=== PATIENT | female | born 1975 | race African-American/Black ===

== ENCOUNTER 2017-12-02 18:44 | Inpatient (IN) | payer OTHER ==
[2017-12-02] MEDS ORDERED: morphine CARPU-JECT 2 MG/1 ML DISP.SYRIN IVPUSH ONE (19:50)
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
[2017-12-02] MEDS ORDERED: morphine CARPU-JECT 2 MG/1 ML DISP.SYRIN IM ONE (20:41)
[2017-12-02] MEDS ORDERED: morphine SULFATE 4 MG/ML VIAL ONE (20:42)
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
[2017-12-02 22:48] LABS: HEMATOCRIT 35.9 % (32.4-45.2); HEMOGLOBIN 12.1 GM/dL (10.7-15.3); MCH 28.4 pg (25.7-33.7); MCHC 33.6 g/dl (32.0-36.0); MEAN CELL VOLUME 84.7 fl (80-96); MEAN PLT VOLUME 8.3 fl (7.5-11.1); PLATELET COUNT 428 K/MM3 (134-434); RBC 4.24 M/mm3 (3.60-5.2); RDW 13.4 % (11.6-15.6); WHITE BLOOD COUNT 6.7 K/mm3 (4.0-10.0)
[2017-12-02 23:16] LABS: ALBUMIN 2.6 g/dl (3.4-5.0); ALK PHOS 818 U/L (45-117); ANION GAP 9 MMOL/L (8-16); BLOOD UREA NITROGEN 39 mg/dL (7-18); CALCIUM 8.9 mg/dL (8.5-10.1); CHLORIDE 99 mmol/L (98-107); CO2 29 mmol/L (21-32); GLUCOSE,RANDOM 216 mg/dL (74-106); SGPT/ALT 47 U/L (12-78); SODIUM 137 mmol/L (136-145); TOT PROT 6.6 g/dl (6.4-8.2)
[2017-12-02 23:19] LABS: BILIRUBIN,TOTAL < 0.1 mg/dL (0.2-1.0)
[2017-12-02 23:20] LABS: POTASSIUM 4.9 mmol/L (3.5-5.1); SGOT/AST 38 U/L (15-37)
[2017-12-03] MEDS ORDERED: SODIUM CHLORIDE 0.9% 500 ML INFUS.BAG IV ONE (02:19)
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
[2017-12-03] MEDS ORDERED: ASPIRIN 81 MG CHEWABLE TABLETS PO ONE (04:06)
[2017-12-03] MEDS ORDERED: HEPARIN NA (PORCINE) 5,000 UNITS/ML 1ML VIAL IVPUSH PRN ×2 (04:09)
[2017-12-03] MEDS ORDERED: ASPIRIN 81 MG CHEWABLE TABLETS ONE (04:41)
[2017-12-03] MEDS ORDERED: HEPARIN INFUSION - 25,000 UNITS/500 ML INFUS.BAG IVPB ONE (04:42)
[2017-12-03] MEDS: HEPARIN - 25,000 UNIT in SODIUM CHLORIDE 495 ML IV SCH (04:50)
[2017-12-03] MEDS ORDERED: MORPHINE SULFATE 2 MG/ML VIAL ONE ×3 (05:07→19:49)
[2017-12-03] MEDS: MORPHINE SULFATE 2 MG/ML VIAL IVPUSH PRN ×3 (05:13→19:35)
[2017-12-03] MEDS ORDERED: HEPARIN NA (PORCINE) 5,000 UNITS/ML 1ML VIAL ONE ×2 (05:14→12:40)
[2017-12-03 06:37] LABS: EOS % 2.3 % (0-4.5); HEMATOCRIT 33.6 % (32.4-45.2); HEMOGLOBIN 11.2 GM/dL (10.7-15.3); LYMPH % 31.7 % (8-40); MCH 28.2 pg (25.7-33.7); MCHC 33.3 g/dl (32.0-36.0); MEAN CELL VOLUME 84.6 fl (80-96); MEAN PLT VOLUME 7.4 fl (7.5-11.1); PLATELET COUNT 386 K/MM3 (134-434); RBC 3.97 M/mm3 (3.60-5.2); RDW 13.7 % (11.6-15.6); WHITE BLOOD COUNT 6.3 K/mm3 (4.0-10.0)
[2017-12-03 06:59] LABS: ANION GAP 9 MMOL/L (8-16); BLOOD UREA NITROGEN 36 mg/dL (7-18); CALCIUM 8.6 mg/dL (8.5-10.1); CHLORIDE 103 mmol/L (98-107); CHOLESTEROL 219 mg/dL (50-200); CO2 27 mmol/L (21-32); CREATININE 0.9 mg/dL (0.55-1.02); GLUCOSE,RANDOM 189 mg/dL (74-106); HDL CHOLESTEROL 41 mg/dL (40-60); MAGNESIUM 1.6 mg/dL (1.8-2.4); PHOSPHOROUS 3.9 mg/dL (2.5-4.9); POTASSIUM 4.1 mmol/L (3.5-5.1); SODIUM 139 mmol/L (136-145); TRIGLYCERIDES 139 mg/dL (35-160)
[2017-12-03 08:41] LABS: URINE APPEARANCE CLOUDY; URINE BILIRUBIN NEGATIVE (<2.0 mg/dL); URINE COLOR YELLOW; URINE GLUCOSE (UA) NEGATIVE (NEGATIVE); URINE KETONE NEGATIVE (NEGATIVE); URINE NITRITE NEGATIVE (NEGATIVE); URINE UROBILINOGEN NEGATIVE mg/dL (0.2-1.0)
[2017-12-03 08:44] LABS: URINE LEUK ESTERASE 3+ (NEGATIVE); URINE PROTEIN 2+ (NEGATIVE)
[2017-12-03 08:53] LABS: EPI CELLS RARE /HPF (FEW); URINE BACTERIA RARE /hpf (NONE SEEN); URINE HYALINE CAST 2 /lpf; URINE MUCUS RARE
[2017-12-03 12:25] LABS: INR 1.1 (0.83-1.09); PROTHROMBIN TIME (PATIENT) 12.4 SEC (9.7-13.0)
[2017-12-03 12:27] LABS: ACTIVATED PTT 41.2 SECONDS (25.2-36.5)
[2017-12-03] MEDS ORDERED: MAGNESIUM SULF 50% (8.12 MEQ/2 ML-1 GM VIAL) IVPB ONE ×2 (12:34→13:00)
[2017-12-03] MEDS ORDERED: ATORVASTATIN CA 80 MG TABLET (FP) PO ONE (13:25)
[2017-12-03] MEDS ORDERED: CLOPIDOGREL BISULFATE 75 MG TABLET (FP) PO ONE ×2 (13:25→22:30)
[2017-12-03] MEDS ORDERED: ASPIRIN 325 MG TABLET PO ONE (13:25)
[2017-12-03] MEDS ORDERED: ASPIRIN 325 MG TABLET ONE (13:26)
[2017-12-03] MEDS ORDERED: CLOPIDOGREL BISULFATE 75 MG TABLET (FP) ONE (13:27)
[2017-12-03] MEDS ORDERED: ATORVASTATIN CA 80 MG TABLET (FP) ONE (13:27)
[2017-12-03] MEDS ORDERED: MAGNESIUM 1GM/D5W - 1 GM/100 ML IVPB IVPB ONE (14:06)
--- NOTE | 2017-12-03 14:30 | PN ---
Progress Note (short form) - Note Progress Note: patient seen and examined in the emergency room Chart reviewed Positive troponins EKG--- unremarkable Patient comfortable Denies chest pain except--- tenderness on the left side of the rib cage--- due to previous fall--patient reported same On heparin received aspirin and Plavix Denies shortness of breath Vital Signs Temp 98.4 F 12/03/17 08:31 Pulse 96 H 12/03/17 12:53 Resp 16 12/03/17 12:53 BP 101/73 12/03/17 12:53 Pulse Ox 98 12/03/17 12:53 Intake & Output 12/02/17 12/03/17 12/03/17 23:59 11:59 23:59 Weight 147 lb Other: Height 5 ft 3 in Body Mass Index (BMI) 26.0 Weight Measurement Method Est/Stated by Patient Active Medications Aspirin (Asa -) 81 mg PO DAILY [facility] Heparin Sodium (Porcine) (Heparin -) 1,000 unit IVPUSH PRN PRN PRN Reason: Heparin Last Admin: 12/03/17 12:51 Dose: 1,000 unit Heparin Sodium (Porcine) (Heparin -) 5,000 unit IVPUSH PRN PRN PRN Reason: Heparin Last Admin: 12/03/17 05:12 Dose: 5,000 unit Heparin Sodium (Porcine) 25, (000 unit/ Sodium Chloride) 500 mls @ 16 mls/hr IV TITR TULIO; Protocol Last Titration: 12/03/17 12:51 Dose: 900 unit/hr, 18 mls/hr Losartan Potassium (Cozaar -) 50 mg PO DAILY [facility] Metoprolol Succinate (Toprol Xl -) 25 mg PO DAILY [facility] Morphine Sulfate (Morphine Sulfate) 2 mg IVPUSH Q6H PRN PRN Reason: PAIN LEVEL 7 - 10 Last Admin: 12/03/17 13:06 Dose: 2 mg CBC, BMP 12/03/17 06:26 12/03/17 06:26 Abnormal Lab Results 12/02/17 12/02/17 12/03/17 22:40 22:40 03:18 MPV INR PTT (Actin FS) BUN 39 H Random Glucose 216 H Magnesium Total Bilirubin < 0.1 L AST 38 H Alkaline Phosphatase 818 H Creatine Kinase Creatine Kinase Index CK-MB (CK-2) Troponin I 0.87 H* 1.01 H* Albumin 2.6 L Cholesterol Total LDL Cholesterol Urine Protein Urine Blood Ur Leukocyte Esterase 12/03/17 12/03/17 12/03/17 06:26 06:26 08:20 MPV 7.4 L D INR PTT (Actin FS) BUN 36 H Random Glucose 189 H Magnesium 1.6 L Total Bilirubin AST Alkaline Phosphatase Creatine Kinase Creatine Kinase Index 10.7 H* CK-MB (CK-2) 17.16 H Troponin I 2.67 H* Albumin Cholesterol 219 H Total LDL Cholesterol 160 H Urine Protein 2+ H Urine Blood 1+ H Ur Leukocyte Esterase 3+ H D 12/03/17 12/03/17 11:40 11:40 MPV INR 1.10 H PTT (Actin FS) 41.2 H BUN Random Glucose Magnesium Total Bilirubin AST Alkaline Phosphatase Creatine Kinase 197 H Creatine Kinase Index 10.9 H* CK-MB (CK-2) 21.65 H Troponin I 3.33 H* Albumin Cholesterol Total LDL Cholesterol Urine Protein Urine Blood Ur Leukocyte Esterase physical exam Awake and comfortable neck supple No JVD Lungs--clear Heart sounds--- regular--- no murmur appreciated abdomen--Soft Extremities--left upper extremity in brace chest--Tenderness present--- left side of rib cage Neuro--alert and awake Assessment and plan Positive troponins==--NST PR EKG--no acute changes on heparin./And aspirin Will add beta leigh and YAN inhibitor Transfer for cardiac catheter? Discussed with healthcare insurance sales agent--- will be coming to see patient shortly We will follow Discussed with nursing staff also
[2017-12-03] MEDS ORDERED: LOSARTAN POTASSIUM 25 MG TABLET ONE (15:06)
[2017-12-03] MEDS: LOSARTAN POTASSIUM 50 MG TABLET (FP) PO SCH (15:15)
[2017-12-03] MEDS: metoPROLOL SUCCINATE 25 MG TAB.SR.24H (FP) PO SCH (15:15)
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
[2017-12-03] MEDS ORDERED: LISINOPRIL 5 MG TABLET (FP) PO ONE (18:45)
--- NOTE | 2017-12-03 19:12 | ECHO ---
Name: JIAN KIM Exam:Adult Echocardiogram Study Date: 12/03/2017 03:33 PM Age: 42 yrs Reason For Study: CHEST PAIN Height: 63 in Weight: 147 lb BSA: 1.7 m2 MMode/2D Measurements & Calculations IVSd: 0.98 cm Ao root diam: 2.6 cm LVIDd: 4.8 cm LA dimension: 2.7 cm LVIDs: 3.2 cm LVPWd: 0.84 cm EDV(Teich): 108.1 ml ESV(Teich): 42.0 ml Doppler Measurements & Calculations MV E max bay: 40.9 cm/sec Ao V2 max: 83.9 cm/sec MV A max bay: 63.2 cm/sec Ao max P.8 mmHg MV E/A: 0.65 LV V1 max P.3 mmHg Med Peak E' Bay: 7.3 cm/sec LV V1 max: 56.5 cm/sec Med E/e': 5.6 Lat Peak E' Bay: 5.5 cm/sec Lat E/e': 7.5 Left Ventricle The left ventricle is normal in size. Left ventricular systolic function is mild to moderately reduce d. Ejection Fraction = 35-40%. The transmitral spectral Doppler flow pattern is suggestive of impaired L V relaxation. There is inferior wall akinesis. There is posterior wall akinesis. Atria Normal left and right atrial size and function. Mitral Valve There is mild mitral valve thickening. There is trace to mild mitral regurgitation. Tricuspid Valve There is Trace to mild tricuspid regurgitation. Great Vessels The aortic root is normal size. Pericardium/Pleura Trivial pericardial effusion not hemodynamically significant. Interpretation Summary The left ventricle is normal in size. Left ventricular systolic function is mild to moderately reduced. Ejection Fraction = 35-40%. The transmitral spectral Doppler flow pattern is suggestive of impaired LV relaxation. There is posterior wall akinesis. There is inferior wall akinesis. There is mild mitral valve thickening. There is trace to mild mitral regurgitation. There is Trace to mild tricuspid regurgitation. The aortic root is normal size. Elian Hernandez MD 12/03/2017 06:51 PM
[2017-12-03] MEDS ORDERED: LISINOPRIL 5 MG TABLET (FP) ONE (19:49)
[2017-12-03] MEDS ORDERED: ATORVASTATIN CA 40 MG TABLET (FP) PO SCH (22:00)
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
[2017-12-03] MEDS ORDERED: MORPHINE SULFATE 2 MG/ML VIAL IVPUSH ONE (23:30)
[2017-12-04 06:19] LABS: EOS % 2.4 % (0-4.5); HEMATOCRIT 35.7 % (32.4-45.2); HEMOGLOBIN 11.7 GM/dL (10.7-15.3); LYMPH % 33.9 % (8-40); MCH 27.9 pg (25.7-33.7); MCHC 32.9 g/dl (32.0-36.0); MEAN CELL VOLUME 84.9 fl (80-96); MEAN PLT VOLUME 6.9 fl (7.5-11.1); MONO % 8.9 % (3.8-10.2); NEUT % 53.8 % (42.8-82.8); PLATELET COUNT 374 K/MM3 (134-434); RDW 13.6 % (11.6-15.6); WHITE BLOOD COUNT 5.5 K/mm3 (4.0-10.0)
[2017-12-04] MEDS: INSULIN SLIDING SCALE (NOVOLOG) 1 VIAL SQ SCH ×4 (06:30→22:00)
[2017-12-04 06:44] LABS: CHLORIDE 99 mmol/L (98-107); POTASSIUM 4.3 mmol/L (3.5-5.1); SODIUM 135 mmol/L (136-145)
[2017-12-04] MEDS: HEPARIN - 25,000 UNIT in SODIUM CHLORIDE 495 ML IV SCH ×2 (06:47→07:58)
[2017-12-04 06:53] LABS: ALBUMIN 2.4 g/dl (3.4-5.0); ALK PHOS 711 U/L (45-117); ANION GAP 7 MMOL/L (8-16); BILIRUBIN,TOTAL 0.2 mg/dL (0.2-1.0); BLOOD UREA NITROGEN 40 mg/dL (7-18); CALCIUM 8.7 mg/dL (8.5-10.1); CO2 29 mmol/L (21-32); CREATININE 1.1 mg/dL (0.55-1.02); GLUCOSE,RANDOM 275 mg/dL (74-106); SGOT/AST 56 U/L (15-37); SGPT/ALT 41 U/L (12-78); TOT PROT 6.3 g/dl (6.4-8.2)
[2017-12-04 09:24] LABS: MAGNESIUM 1.8 mg/dL (1.8-2.4); PHOSPHOROUS 3.7 mg/dL (2.5-4.9)
[2017-12-04] MEDS ORDERED: cefTRIAXone SODIUM 1 GM VIAL ONE (09:46)
[2017-12-04] MEDS ORDERED: DEXTROSE 5%-WATER - 50 ML IVPB ONE (09:47)
[2017-12-04] MEDS: metoPROLOL SUCCINATE 25 MG TAB.SR.24H (FP) PO SCH (09:59)
[2017-12-04] MEDS: ASPIRIN 81 MG CHEWABLE TABLETS PO SCH (10:00)
[2017-12-04] MEDS: LOSARTAN POTASSIUM 50 MG TABLET (FP) PO SCH (10:00)
[2017-12-04] MEDS: INSULIN (LEVEMIR) 100 UNITS/ML UNITS SQ SCH (10:01)
[2017-12-04] MEDS: CEFTRIAXONE 1 GM in DEXTROSE 5%-WATER - 50 ML IVPB SCH (10:17)
--- NOTE | 2017-12-04 10:26 | PN ---
Progress Note (short form) - Note Progress Note: patient seen and examined in ICU Positive troponins NST NE Patient at present is awake and comfortable Denies chest pain Cardiology consult noted and appreciated--- transfer being considered. also started on antibiotics--- for UTI Urine culture not sent----discussed with nursing staff and ICU team--- to be sent She is also not on basal insulin--- blood sugar running high Add basal insulin I also Ordered [id number]----ok be added to the labs Vital Signs Temp 98.6 F 12/04/17 00:00 Pulse 71 12/04/17 04:00 Resp 14 12/04/17 04:00 BP 110/81 12/04/17 04:00 Pulse Ox 98 12/04/17 09:00 Intake & Output 12/03/17 12/03/17 12/04/17 11:59 23:59 11:59 Intake Total 300 203 Output Total 1000 Balance -700 203 Weight 147 lb 145 lb 12.8 oz Intake: IV 153 Heparin - 25,000 Unit In 153 Normal Saline - 495 ml @ 800 UNIT/HR 16 mls/hr IV TITR TULIO Rx#:[id number] Oral 150 50 Oral Supplement 150 Output: Urine 1000 Void 1000 Other: Voiding Method Bedpan Height 5 ft 3 in Body Mass Index (BMI) 26.0 Weight Measurement Method [facility] Medications Aspirin (Asa -) 81 mg PO DAILY [facility] Last Admin: 12/04/17 10:00 Dose: 81 mg Atorvastatin Calcium (Lipitor -) [address] [facility] Heparin Sodium (Porcine) (Heparin -) 1,000 unit IVPUSH PRN PRN PRN Reason: Heparin Last Admin: 12/03/17 12:51 Dose: 1,000 unit Heparin Sodium (Porcine) (Heparin -) 5,000 unit IVPUSH PRN PRN PRN Reason: Heparin Last Admin: 12/03/17 05:12 Dose: 5,000 unit Heparin Sodium (Porcine) 25, (000 unit/ Sodium Chloride) 500 mls @ 16 mls/hr IV TITR TULIO; Protocol Last Admin: 12/04/17 07:58 Dose: 900 unit/hr, 18 mls/hr Ceftriaxone Sodium 1 gm/ (Dextrose) 50 mls @ 100 mls/hr IVPB DAILY TULIO Last Admin: 12/04/17 10:17 Dose: 100 mls/hr Insulin Aspart (Novolog Vial Sliding Scale -) 1 vial SQ [facility]; Protocol Last Admin: 12/04/17 06:30 Dose: 6 units Insulin Detemir (Levemir Vial) 10 units SQ DAILY@0700 [facility] Last Admin: 12/04/17 10:01 Dose: 10 units Losartan Potassium (Cozaar -) 50 mg PO DAILY [facility] Last Admin: 12/04/17 10:00 Dose: 50 mg Metoprolol Succinate (Toprol Xl -) 25 mg PO DAILY [facility] Last Admin: 12/04/17 09:59 Dose: 25 mg Morphine Sulfate (Morphine Sulfate) 2 mg IVPUSH Q6H PRN PRN Reason: PAIN LEVEL 7 - 10 Last Admin: 12/03/17 19:35 Dose: 2 mg CBC, BMP 12/04/17 05:30 12/04/17 05:30 physical exam Awake and comfortable neck supple No JVD Lungs--clear Heart sounds--- regular--- no murmur appreciated abdomen--Soft/ non tender Extremities--left upper extremity in brace chest--Tenderness present--- left side of rib cage Neuro--alert and awake Assessment and plan NST NE--inferior wall NE Positive troponins==- EKG--no acute changes on heparin./And aspirin antibiotics for UTI Medications reviewed in cardiology on caser up blood sugar Transfer to tertiary care center discussed with ICU resident/Attending Had discussed with breaker unit assembler also smoking cessation counseling also provided. Will follow. Critical care time--- 30 minutes Problem List - Problems (1) Nicotine dependence Code(s): F17.200 - NICOTINE DEPENDENCE, UNSPECIFIED, UNCOMPLICATED (2) Diabetes Code(s): E11.9 - TYPE 2 DIABETES MELLITUS WITHOUT COMPLICATIONS (3) NSTEMI (non-ST elevated myocardial infarction) Code(s): I21.4 - NON-ST ELEVATION (NSTEMI) MYOCARDIAL INFARCTION (4) S/P SWITCH HOUSE OPERATOR shunt Code(s): Z98.2 - PRESENCE OF CEREBROSPINAL FLUID DRAINAGE DEVICE
[2017-12-04] MEDS ORDERED: SODIUM BICARBONATE 8.4% - 50 ML ONE (10:48)
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
--- NOTE | 2017-12-04 13:16 | EKG ---
Test Reason : Blood Pressure : / mmHG Vent. Rate : 085 BPM Atrial Rate : 085 BPM P-R Int : 136 ms QRS Dur : 098 ms QT Int : 416 ms P-R-T Axes : 036 -54 092 degrees QTc Int : 495 ms NORMAL SINUS RHYTHM LOW VOLTAGE QRS LEFT ANTERIOR FASCICULAR BLOCK ABNORMAL QRS-T ANGLE, CONSIDER PRIMARY T WAVE ABNORMALITY PROLONGED QT ABNORMAL ECG Confirmed by JUSTINE MONREAL MD ([id number]) on 12/04/2017 1:16:13 PM Referred By: Low TROTTER Confirmed By:JUSTINE MONREAL MD
[2017-12-04] MEDS: ACETAMINOPHEN 325 MG TABLET (FP) PO PRN (13:36)
[2017-12-04] MEDS: CLOPIDOGREL BISULFATE 75 MG TABLET (FP) PO SCH (13:36)
--- NOTE | 2017-12-04 13:36 | EKG ---
Test Reason : Blood Pressure : / mmHG Vent. Rate : 100 BPM Atrial Rate : 100 BPM P-R Int : 124 ms QRS Dur : 100 ms QT Int : 386 ms P-R-T Axes : 049 211 090 degrees QTc Int : 497 ms NORMAL SINUS RHYTHM RIGHT SUPERIOR AXIS DEVIATION PULMONARY DISEASE PATTERN PROLONGED QT ABNORMAL ECG WHEN COMPARED WITH ECG OF 02-DEC-2017 20:51, NO SIGNIFICANT CHANGE WAS FOUND Confirmed by JUSTINE MONREAL MD ([id number]) on 12/04/2017 1:35:42 PM Referred By: Confirmed By:JUSTINE MONREAL MD
--- NOTE | 2017-12-04 13:43 | EKG ---
Test Reason : Blood Pressure : / mmHG Vent. Rate : 111 BPM Atrial Rate : 111 BPM P-R Int : 122 ms QRS Dur : 094 ms QT Int : 354 ms P-R-T Axes : 044 244 091 degrees QTc Int : 481 ms SINUS TACHYCARDIA RIGHT SUPERIOR AXIS DEVIATION PULMONARY DISEASE PATTERN ABNORMAL ECG WHEN COMPARED WITH ECG OF 20-OCT-2015 21:25, COMPARED TO EKG NO SIGNIFICANT CHANGE IS FOUND Confirmed by JUSTINE MONREAL MD ([id number]) on 12/04/2017 1:43:14 PM Referred By: Confirmed By:JUSTINE MONREAL MD
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
[2017-12-04] MEDS ORDERED: ATORVASTATIN CA 80 MG TABLET (FP) PO SCH (22:00)
[2017-12-05] MEDS: MORPHINE SULFATE 2 MG/ML VIAL IVPUSH PRN ×2 (04:15→20:38)
[2017-12-05] MEDS: INSULIN SLIDING SCALE (NOVOLOG) 1 VIAL SQ SCH ×3 (07:26→16:59)
[2017-12-05] MEDS: INSULIN (LEVEMIR) 100 UNITS/ML UNITS SQ SCH (07:26)
[2017-12-05] MEDS ORDERED: DEXTROSE 5%-WATER - 50 ML IVPB ONE (08:21)
[2017-12-05] MEDS ORDERED: cefTRIAXone SODIUM 1 GM VIAL ONE (08:21)
[2017-12-05] MEDS: LOSARTAN POTASSIUM 50 MG TABLET (FP) PO SCH (09:11)
[2017-12-05] MEDS: metoPROLOL SUCCINATE 25 MG TAB.SR.24H (FP) PO SCH (09:11)
[2017-12-05] MEDS: CEFTRIAXONE 1 GM in DEXTROSE 5%-WATER - 50 ML IVPB SCH (09:11)
[2017-12-05] MEDS: ASPIRIN 81 MG CHEWABLE TABLETS PO SCH (09:13)
[2017-12-05] MEDS: CLOPIDOGREL BISULFATE 75 MG TABLET (FP) PO SCH (09:16)
--- NOTE | 2017-12-05 10:09 | PN ---
Progress Note (short form) - Note Progress Note: - Note Progress Note: patient seen and examined in ICU Positive troponins NSTEMI Patient at present is awake and c/o side pain no SOB on Heparin GTT Denies chest pain Cardiology consult noted and appreciated--- transfer to [place] Vital Signs - 24 hr 12/04/17 12/04/17 12/04/17 12:00 14:00 16:00 Temperature 98.2 F 97.8 F Pulse Rate 80 80 76 Respiratory 15 15 15 Rate Blood Pressure 115/83 130/94 113/76 O2 Sat by Pulse Oximetry (%) 12/04/17 12/04/17 12/04/17 18:00 20:00 21:00 Temperature 97.6 F 98 F Pulse Rate 87 Respiratory 15 16 Rate Blood Pressure 117/78 130/90 O2 Sat by Pulse 100 Oximetry (%) 12/04/17 12/05/17 12/05/17 22:00 00:00 02:00 Temperature 97.8 F 97.8 F Pulse Rate 89 90 86 Respiratory 15 15 18 Rate Blood Pressure 131/97 128/93 124/89 O2 Sat by Pulse Oximetry (%) 12/05/17 12/05/17 12/05/17 04:00 05:00 08:00 Temperature 98 F Pulse Rate 84 82 87 Respiratory 18 16 18 Rate Blood Pressure 141/113 119/83 118/88 O2 Sat by Pulse Oximetry (%) 12/05/17 12/05/17 09:00 10:00 Temperature 98.2 F Pulse Rate 87 Respiratory 18 18 Rate Blood Pressure 122/81 O2 Sat by Pulse 100 Oximetry (%) Current Medications Generic Name Dose Route Start Last Admin Trade Name Freq PRN Reason Stop Dose Admin Acetaminophen 650 mg 12/04/17 13:18 12/04/17 13:36 Tylenol - PO 650 mg Q4H PRN Administration PAIN Aspirin 81 mg 12/04/17 10:00 12/05/17 09:13 Asa - PO 81 mg DAILY [facility] Administration Atorvastatin Calcium 80 mg 12/04/17 22:00 12/04/17 23:00 Lipitor - PO 80 mg HS [facility] Administration Clopidogrel Bisulfate 75 mg 12/04/17 13:15 12/05/17 09:16 Plavix - PO 75 mg DAILY [facility] Administration Heparin Sodium (Porcine) 1,000 unit 12/03/17 04:09 12/03/17 12:51 Heparin - IVPUSH 1,000 unit PRN PRN Administration Heparin Heparin Sodium (Porcine) 5,000 unit 12/03/17 04:09 12/03/17 05:12 Heparin - IVPUSH 5,000 unit PRN PRN Administration Heparin Heparin Sodium (Porcine) 25, 500 mls @ 16 mls/hr 12/03/17 04:15 12/04/17 07: 58 000 unit/ Sodium Chloride IV 900 unit/hr TITR [facility] 18 mls/hr Administration Protocol 800 UNIT/HR Ceftriaxone Sodium 1 gm/ 50 mls @ 100 mls/hr 12/04/17 10:00 12/05/17 09:11 Dextrose IVPB 100 mls/hr DAILY [facility] Administration Insulin Aspart 1 vial 12/04/17 07:00 12/05/17 10:56 Novolog Vial Sliding Scale - SQ Not Given [facility] Protocol Insulin Detemir 10 units 12/04/17 09:45 12/05/17 07:26 Levemir Vial SQ 10 units DAILY@0700 [facility] Administration Losartan Potassium 50 mg 12/03/17 14:30 12/05/17 09:11 Cozaar - PO 50 mg DAILY [facility] Administration Metoprolol Succinate 25 mg 12/03/17 14:30 12/05/17 09:11 Toprol Xl - PO 25 mg DAILY [facility] Administration Morphine Sulfate 2 mg 12/03/17 04:53 12/05/17 04:15 Morphine Sulfate IVPUSH 2 mg Q6H PRN Administration PAIN LEVEL 7 - 10 Laboratory Results - last 24 hr 12/04/17 12/04/17 12/04/17 05:30 11:30 13:12 POC Glucometer 183.61639 Hemoglobin A1c % 11.0 H Creatine Kinase 186 Creatine Kinase Index 7.2 H* CK-MB (CK-2) 13.43 H Troponin I 4.90 H* 12/04/17 17:41 POC Glucometer 140.06917 Hemoglobin A1c % Creatine Kinase Creatine Kinase Index CK-MB (CK-2) Troponin I physical exam Awake and comfortable neck supple No JVD Lungs--clear Heart sounds--- regular--- no murmur appreciated abdomen--Soft/ non tender Extremities--left upper extremity in brace chest--Tenderness present--- left side of rib cage Neuro--alert and awake Assessment and plan NSTEMI--inferior wall [place] c/o side pain - symptomatic Positive troponins==- EKG--no acute changes on heparin./And aspirin antibiotics for UTI Medications reviewed smoking cessation counseling also provided. Will follow. awaiting transfer Problem List - Problems (1) Nicotine dependence Code(s): F17.200 - NICOTINE DEPENDENCE, UNSPECIFIED, UNCOMPLICATED (2) Diabetes Code(s): E11.9 - TYPE 2 DIABETES MELLITUS WITHOUT COMPLICATIONS (3) NSTEMI (non-ST elevated myocardial infarction) Code(s): I21.4 - NON-ST ELEVATION (NSTEMI) MYOCARDIAL INFARCTION (4) S/P SAND MILL OPERATOR shunt Code(s): Z98.2 - PRESENCE OF CEREBROSPINAL FLUID DRAINAGE DEVICE
[2017-12-05 10:16] VITALS: TEMP 98.2
[2017-12-05 11:24] VITALS: BMI 25.7
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
[2017-12-05 12:16] LABS: HEMATOCRIT 34.3 % (32.4-45.2); HEMOGLOBIN 11.6 GM/dL (10.7-15.3); MCH 28.6 pg (25.7-33.7); MCHC 33.8 g/dl (32.0-36.0); MEAN CELL VOLUME 84.6 fl (80-96); MEAN PLT VOLUME 7.9 fl (7.5-11.1); PLATELET COUNT 348 K/MM3 (134-434); RBC 4.05 M/mm3 (3.60-5.2); RDW 13.6 % (11.6-15.6); WHITE BLOOD COUNT 5.5 K/mm3 (4.0-10.0)
[2017-12-05 12:19] LABS: INR 1.08 (0.83-1.09); PROTHROMBIN TIME (PATIENT) 12.2 SEC (9.7-13.0)
[2017-12-05 12:22] LABS: ACTIVATED PTT 58.6 SECONDS (25.2-36.5)
[2017-12-05 12:31] LABS: CHLORIDE 104 mmol/L (98-107); POTASSIUM 4.2 mmol/L (3.5-5.1); SODIUM 142 mmol/L (136-145)
[2017-12-05 12:37] LABS: ALBUMIN 2.4 g/dl (3.4-5.0); ALK PHOS 759 U/L (45-117); ANION GAP 12 MMOL/L (8-16); BILIRUBIN,TOTAL 0.1 mg/dL (0.2-1.0); BLOOD UREA NITROGEN 33 mg/dL (7-18); CALCIUM 8.9 mg/dL (8.5-10.1); CO2 26 mmol/L (21-32); CREATININE 0.7 mg/dL (0.55-1.02); GLUCOSE,RANDOM 131 mg/dL (74-106); SGOT/AST 70 U/L (15-37); SGPT/ALT 69 U/L (12-78); TOT PROT 6.1 g/dl (6.4-8.2)
[2017-12-05] MEDS: HEPARIN - 25,000 UNIT in SODIUM CHLORIDE 495 ML IV SCH (12:40)
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
[2017-12-05] MEDS: ACETAMINOPHEN 325 MG TABLET (FP) PO PRN (15:22)
[2017-12-05 18:16] VITALS: BP 123/84; PULSE 80
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
--- NOTE | 2017-12-06 15:47 | DS ---
Physical Examination Vital Signs: Vital Signs Temperature 98.2 F 12/05/17 10:00 Pulse Rate 80 12/05/17 18:00 Respiratory Rate 12 12/05/17 18:00 Blood Pressure 123/84 12/05/17 18:00 O2 Sat by Pulse Oximetry (%) 100 12/05/17 09:00 Findings/Remarks: progress note of 12/05/17 Labs: CBC, BMP 12/05/17 11:56 12/05/17 11:10 Discharge Summary Reason For Visit: NON-S ELEVATION (NSTEMI) MYOCARDIAL INFARCTION Hospital Course: NST UT patient transferred to [place] for cardiac catheter and further management - Instructions Disposition: TRANSFER ACUTE CARE/OTHER HOSP - Home Medications Comprehensive Discharge Medication List: Ambulatory Orders Oxycodone HCl/Acetaminophen [Percocet 5-325 mg Tablet] 1 tab PO Q6H #12 tab MDD 6 11/27/15 Acetaminophen [Acetaminophen ER] 650 mg PO BID 12/02/17 Bacitracin - [Bacitracin Topical Ointment -] 1 applic TP BID 12/02/17 Diphenhydramine HCl [Benadryl -] 25 mg PO BID 12/02/17 Docusate Sodium [Colace] 100 mg PO BID 12/02/17 Ergocalciferol [Vitamin D2] 50,000 unit PO WEEKLY 12/02/17 Insulin Glargine,Hum.rec.anlog [Basaglar Kwikpen U-100] 14 unit SQ DAILY Insulin Lispro [Admelog] 0 unit SQ BID 12/02/17 Magnesium Hydroxide [Milk of Magnesia] 400 mg PO TID 12/02/17 Ondansetron Oral Solution [Zofran Oral Solution -] 4 mg PO PRN PRN 12/02/17 Polyethylene Glycol 3350 [Miralax (For Daily Use) -] 17 gm PO ONCE 12/02/17 Tamsulosin HCl 0.8 mg PO TID 12/02/17
== END 2017-12-05 21:00 | disposition short-term general hospital (02) | DRG 190 ==
LOC: JER 18:44 → JERBED 12-03 04:03 → JICU 12-03 20:25
PROVIDERS: ADMIT Internal Medicine; ATTEND Internal Medicine
DX: I21.4 Non-ST elevation (NSTEMI) myocardial infarction (principal); E11.9 Type 2 diabetes mellitus without complications; R07.9 Chest pain, unspecified; M54.9 Dorsalgia, unspecified; M79.1 Myalgia; F17.210 Nicotine dependence, cigarettes, uncomplicated; Z98.2 Presence of cerebrospinal fluid drainage device; Z79.4 Long term (current) use of insulin; E78.5 Hyperlipidemia, unspecified; J98.11 Atelectasis; N39.0 Urinary tract infection, site not specified; N28.1 Cyst of kidney, acquired; H50.9 Unspecified strabismus; R29.898 Other symptoms and signs involving the musculoskeletal system; N28.9 Disorder of kidney and ureter, unspecified; I50.9 Heart failure, unspecified
CPT/HCPCS: 36415; 71045-TC-FY; 71275-TC; 72170-TC-FY; 73090-TC-LT-FY; 73110-TC-LR-FY; 80048; 80053; 80061; 81003; 81015; 82550; 82553; 82962; 83036; 83721; 83735; 84100; 84443; 84484; 85025; 85027; 85610; 85730; 87086; 87186; 93005; 93010; 93306-TC; 99284-25; J1644

== ENCOUNTER 2017-12-20 22:03 | Emergency (ER) | payer OTHER ==
[2017-12-20 23:05] VITALS: TEMP 98.4; BMI 26.4
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
[2017-12-21 05:30] VITALS: BP 116/72; PULSE 82
== END 2017-12-21 05:30 ==
LOC: JER 22:03
DX: M79.1 Myalgia (principal); M54.5 Low back pain; M25.512 Pain in left shoulder; V43.52XA Car driver injured in collision with other type car in traffic accident, initial encounter; Y93.89 Activity, other specified; Y92.410 Unspecified street and highway as the place of occurrence of the external cause; E11.9 Type 2 diabetes mellitus without complications
CPT/HCPCS: 72100-TC-FY; 72131-TC; 73030-TC-LT-FY; 73090-TC-LT-FY; 73110-TC-LR-FY; 73130-TC-LR-FY; 73560-TC-LT-FY; 99282-25

== ENCOUNTER 2021-09-06 12:54 | Observation (INO) | payer OTHER ==
[2021-09-06 13:18] VITALS: BMI 28.3
[2021-09-06 17:18] LABS: BASO % 0.7 % (0-2.0); HEMOGLOBIN 13.1 GM/dL (10.7-15.3); LYMPH % 25.2 % (8-40); MCH 27.3 pg (25.7-33.7); MCHC 32.8 g/dl (32.0-36.0); MEAN CELL VOLUME 83.3 fl (80-96); MEAN PLT VOLUME 8.2 fl (7.5-11.1); MONO % 6.9 % (3.8-10.2); NEUT % 65.2 % (42.8-82.8); PLATELET COUNT 261 10^3/uL (134-434); WHITE BLOOD COUNT 6.6 K/mm3 (4.0-10.0)
[2021-09-06 17:36] LABS: CALCIUM 9.9 mg/dL (8.5-10.1)
[2021-09-06 17:37] LABS: ALBUMIN 3.8 g/dl (3.4-5.0); BLOOD UREA NITROGEN 26.5 mg/dL (7-18)
[2021-09-06 17:41] LABS: BILIRUBIN,TOTAL 0.5 mg/dL (0.2-1); TOT PROT 7.9 g/dl (6.4-8.2)
[2021-09-06 17:44] LABS: N-TERMINAL BNP 133.3 pg/ml (5-125)
[2021-09-06] MEDS ORDERED: ASPIRIN 81 MG CHEWABLE TABLETS PO ONE (18:36)
[2021-09-06 20:21] LABS: VENOUS BASE EXCESS -1.1 mmol/L (-2-2); VENOUS O2 SATURATION 98.6 % (70-80); VENOUS PCO2 43.2 mmHg (38-52); VENOUS PH 7.368 (7.310-7.410)
[2021-09-06] MEDS ORDERED: LISINOPRIL 10 MG TABLET ONE (22:02)
[2021-09-06] MEDS ORDERED: ASPIRIN 81 MG CHEWABLE TABLETS ONE (22:03)
[2021-09-06] MEDS: LISINOPRIL 10 MG TABLET PO SCH (22:05)
[2021-09-06] MEDS: INSULIN SLIDING SCALE (NOVOLOG) 1 VIAL SQ SCH (22:17)
[2021-09-07] MEDS: HYDROCHLOROTHIAZIDE 12.5 MG CAPSULE (FP) PO SCH (07:03)
[2021-09-07] MEDS: INSULIN SLIDING SCALE (NOVOLOG) 1 VIAL SQ SCH ×3 (08:16→17:25)
[2021-09-07] MEDS ORDERED: ACETAMINOPHEN 325 MG TABLET (FP) ONE (08:24)
[2021-09-07] MEDS: ACETAMINOPHEN 325 MG TABLET (FP) PO PRN (08:41)
[2021-09-07] MEDS ORDERED: ENOXAPARIN NA (PORCINE) 40 MG/0.4 ML DISP.SYRIN SQ ONE (09:35)
[2021-09-07] MEDS: ENOXAPARIN NA (PORCINE) 40 MG/0.4 ML DISP.SYRIN SQ SCH (11:50)
[2021-09-07] MEDS ORDERED: INSULIN SLIDING SCALE (NOVOLOG) 1 VIAL SQ ONE (11:59)
[2021-09-08] MEDS ORDERED: LISINOPRIL 10 MG TABLET ONE ×2 (00:53→10:22)
[2021-09-08] MEDS: LISINOPRIL 10 MG TABLET PO SCH (01:03)
[2021-09-08] MEDS: INSULIN SLIDING SCALE (NOVOLOG) 1 VIAL SQ SCH ×6 (01:04→22:02)
[2021-09-08 06:52] LABS: HEMATOCRIT 32.6 % (32.4-45.2); MCHC 33.8 g/dl (32.0-36.0); MEAN CELL VOLUME 82.8 fl (80-96); MEAN PLT VOLUME 8.5 fl (7.5-11.1); PLATELET COUNT 220 10^3/uL (134-434); RBC 3.93 M/mm3 (3.60-5.2); RDW 14.1 % (11.6-15.6)
[2021-09-08 07:11] LABS: CALCIUM 9.2 mg/dL (8.5-10.1)
[2021-09-08 07:12] LABS: BLOOD UREA NITROGEN 31.6 mg/dL (7-18)
[2021-09-08 07:14] LABS: CREATININE 1.3 mg/dL (0.55-1.3)
[2021-09-08 07:15] LABS: BILIRUBIN,TOTAL 0.5 mg/dL (0.2-1); PHOSPHOROUS 4.2 mg/dL (2.5-4.9)
[2021-09-08 07:21] LABS: ALBUMIN 2.6 g/dl (3.4-5.0); TOT PROT 5.8 g/dl (6.4-8.2)
[2021-09-08] MEDS ORDERED: MAGNESIUM 2GM/50ML STERILE WATER IVPB IVPB ONE (07:30)
[2021-09-08] MEDS ORDERED: MAGNESIUM SULFATE IN WATER 2 GM/50 ML IVPB IVPB ONE ×2 (08:15→10:23)
[2021-09-08] MEDS: HYDROCHLOROTHIAZIDE 12.5 MG CAPSULE (FP) PO SCH (09:30)
[2021-09-08] MEDS: ENOXAPARIN NA (PORCINE) 40 MG/0.4 ML DISP.SYRIN SQ SCH (09:30)
[2021-09-08] MEDS ORDERED: ACETAMINOPHEN 325 MG TABLET (FP) ONE (10:22)
[2021-09-08] MEDS ORDERED: ENOXAPARIN NA (PORCINE) 40 MG/0.4 ML DISP.SYRIN SQ ONE (10:23)
[2021-09-08] MEDS ORDERED: MAGNESIUM OXIDE 400 MG TABLET (FP) PO ONE (15:40)
[2021-09-08] MEDS ORDERED: MAGNESIUM OXIDE 400 MG TABLET (FP) ONE (16:49)
[2021-09-08] MEDS ORDERED: ASPIRIN 81 MG CHEWABLE TABLETS ONE (21:40)
[2021-09-08] MEDS ORDERED: ATORVASTATIN CA 40 MG TABLET (FP) ONE (21:40)
[2021-09-08] MEDS ORDERED: INSULIN (LEVEMIR) 100 UNITS/ML UNITS SQ SCH (22:00)
[2021-09-08] MEDS ORDERED: ATORVASTATIN CA 20 MG TABLET (FP) PO SCH (22:00)
[2021-09-08] MEDS: ASPIRIN 81 MG CHEWABLE TABLETS PO SCH (22:02)
[2021-09-08] MEDS: ATORVASTATIN CA 40 MG TABLET (FP) PO SCH (22:02)
[2021-09-09 07:12] LABS: HEMATOCRIT 37.3 % (32.4-45.2); HEMOGLOBIN 12.3 GM/dL (10.7-15.3); MCH 27.7 pg (25.7-33.7); MCHC 32.9 g/dl (32.0-36.0); MEAN PLT VOLUME 9.7 fl (7.5-11.1); PLATELET COUNT 165 10^3/uL (134-434); RBC 4.44 M/mm3 (3.60-5.2); RDW 13.8 % (11.6-15.6); WHITE BLOOD COUNT 4.4 K/mm3 (4.0-10.0)
[2021-09-09 07:43] LABS: BLOOD UREA NITROGEN 45.3 mg/dL (7-18); CALCIUM 9.5 mg/dL (8.5-10.1)
[2021-09-09 07:44] LABS: MAGNESIUM 1.2 mg/dL (1.8-2.4)
[2021-09-09 07:46] LABS: CREATININE 1.3 mg/dL (0.55-1.3); PHOSPHOROUS 4.6 mg/dL (2.5-4.9)
[2021-09-09] MEDS: INSULIN SLIDING SCALE (NOVOLOG) 1 VIAL SQ SCH ×3 (09:26→17:37)
[2021-09-09] MEDS ORDERED: metoPROLOL SUCCINATE 25 MG TAB.SR.24H (FP) PO SCH (10:00)
[2021-09-09] MEDS ORDERED: LISINOPRIL 20 MG TABLET PO SCH (10:00)
[2021-09-09] MEDS ORDERED: INSULIN (LEVEMIR) 100 UNITS/ML UNITS SQ ONE (12:05)
[2021-09-09] MEDS ORDERED: INSULIN (LEVEMIR) 100 UNITS/ML UNITS SQ SCH (12:30)
[2021-09-09] MEDS ORDERED: MAGNESIUM OXIDE 400 MG TABLET (FP) PO ONE ×3 (12:30→16:00)
[2021-09-09] MEDS: ASPIRIN 81 MG CHEWABLE TABLETS PO SCH (13:00)
[2021-09-09] MEDS: ENOXAPARIN NA (PORCINE) 40 MG/0.4 ML DISP.SYRIN SQ SCH (13:00)
[2021-09-09] MEDS ORDERED: ACETAMINOPHEN 500 MG TABLET (FP) PO ONE (17:08)
[2021-09-09] MEDS: ACETAMINOPHEN 325 MG TABLET (FP) PO PRN (17:33)
[2021-09-10] MEDS: INSULIN SLIDING SCALE (NOVOLOG) 1 VIAL SQ SCH ×3 (00:24→12:36)
[2021-09-10] MEDS: GABAPENTIN 100 MG CAPSULE PO SCH ×3 (00:25→14:42)
[2021-09-10] MEDS: INSULIN (LEVEMIR) 100 UNITS/ML UNITS SQ SCH ×2 (00:25→12:07)
[2021-09-10] MEDS: ATORVASTATIN CA 40 MG TABLET (FP) PO SCH (00:25)
[2021-09-10] MEDS ORDERED: ACETAMINOPHEN 325 MG TABLET (FP) PO PRN (08:06)
[2021-09-10] MEDS ORDERED: LISINOPRIL 20 MG TABLET PO SCH (10:00)
[2021-09-10] MEDS ORDERED: ENOXAPARIN NA (PORCINE) 40 MG/0.4 ML DISP.SYRIN SQ SCH (10:00)
[2021-09-10] MEDS ORDERED: ASPIRIN 81 MG CHEWABLE TABLETS PO SCH (10:00)
[2021-09-10] MEDS ORDERED: metoPROLOL SUCCINATE 25 MG TAB.SR.24H (FP) PO SCH (10:00)
[2021-09-10 11:21] VITALS: BP 130/86; PULSE 84; TEMP 97.8
[2021-09-10] MEDS ORDERED: INSULIN (LEVEMIR) 100 UNITS/ML UNITS SQ ONE (12:05)
[2021-09-10] MEDS ORDERED: INSULIN SLIDING SCALE (NOVOLOG) 1 VIAL SQ ONE (12:35)
[2021-09-10] MEDS ORDERED: ATORVASTATIN CA 40 MG TABLET (FP) PO SCH (22:00)
== END 2021-09-10 17:59 | disposition home or self-care (01) ==
LOC: JER 12:54 → JERBED 18:36 → UNDOADMOB 18:36 → OBSVTOIN 20:51 → INTOOBSV 20:51 → JERBED 09-07 16:11 → J5S 09-09 09:48
PROVIDERS: ADMIT Internal Medicine; ATTEND Internal Medicine
PROC: 3E023GC Introduction of Other Therapeutic Substance into Muscle, Percutaneous Approach (ICD-10-PCS; principal; 2021-09-07)
PROC: 3E013VG Introduction of Insulin into Subcutaneous Tissue, Percutaneous Approach (ICD-10-PCS; 2021-09-07)
DX: I25.10 Atherosclerotic heart disease of native coronary artery without angina pectoris (principal); I11.9 Hypertensive heart disease without heart failure; Z95.5 Presence of coronary angioplasty implant and graft; E78.5 Hyperlipidemia, unspecified; E11.9 Type 2 diabetes mellitus without complications; Q03.9 Congenital hydrocephalus, unspecified; Z98.2 Presence of cerebrospinal fluid drainage device
CPT/HCPCS: 36415; 71046-TC-FY; 73560-TC-LT-FY; 80048; 80053; 80061; 82010; 82803; 82962; 83036; 83735; 83880; 84100; 84443; 84484; 85025; 85027; 87086; 93005; 93010; 93306-TC; 93970-TC; 99285-25; C9803-CS; G0378; U0003; U0005

== ENCOUNTER 2023-03-09 01:31 | Observation (INO) | payer OTHER ==
[2023-03-09] MEDS ORDERED: VANCOMYCIN 1 GM PREMIX - 1 GM/200 ML BAG IVPB ONE (02:32)
[2023-03-09] MEDS ORDERED: ACETAMINOPHEN 1000 MG/100 ML BAG IVPB ONE (02:47)
[2023-03-09] MEDS ORDERED: ACETAMINOPHEN INJECTION 100 ML IVPB ONE (02:53)
[2023-03-09] MEDS ORDERED: VANCOMYCIN 1 GRAM (PRE-DOCKED) 1,000 MG/250 ML BAG IVPB ONE (02:54)
[2023-03-09 04:49] LABS: BASO % 0.9 % (0-2.0); HEMATOCRIT 34.9 % (32.4-45.2); HEMOGLOBIN 11.6 GM/dL (10.7-15.3); LYMPH % 24.8 % (8-40); MCH 28.4 pg (25.7-33.7); MCHC 33.3 g/dl (32.0-36.0); MEAN CELL VOLUME 85.2 fl (80-96); MEAN PLT VOLUME 8.2 fl (7.5-11.1); MONO % 7.1 % (3.8-10.2); NEUT % 65.2 % (42.8-82.8); PLATELET COUNT 231 10^3/uL (134-434); RBC 4.09 M/mm3 (3.60-5.2); RDW 13.9 % (11.6-15.6); WHITE BLOOD COUNT 7.3 K/mm3 (4.0-10.0)
[2023-03-09 05:11] LABS: POTASSIUM 4.3 mmol/L (3.5-5.1)
[2023-03-09 05:13] LABS: ALBUMIN 3.6 g/dl (3.4-5.0); CALCIUM 9.3 mg/dL (8.5-10.1)
[2023-03-09 05:14] LABS: BLOOD UREA NITROGEN 26.5 mg/dL (7-18)
[2023-03-09 05:17] LABS: BILIRUBIN,TOTAL 0.6 mg/dL (0.2-1); CREATININE 1.1 mg/dL (0.55-1.3); TOT PROT 7.2 g/dl (6.4-8.2)
[2023-03-09 08:21] VITALS: BMI 26.9
[2023-03-09] MEDS ORDERED: LACTATED RINGERS SOLUTION 1,000 ML/1,000 ML INFUS.BAG IV SCH (09:15)
[2023-03-09] MEDS ORDERED: CEFEPIME 2 GM in DEXTROSE 5%-WATER 100 ML IVPB SCH ×2 (10:00→22:00)
[2023-03-09] MEDS: LOSARTAN POTASSIUM 25 MG TABLET PO SCH (10:21)
[2023-03-09] MEDS: ENOXAPARIN NA (PORCINE) 40 MG/0.4 ML DISP.SYRIN SQ SCH (10:21)
[2023-03-09] MEDS ORDERED: INSULIN (NOVOLOG) ASPART 100 UNITS/ML 10ML VIAL ONE ×2 (11:59→17:41)
[2023-03-09] MEDS: INSULIN SLIDING SCALE (NOVOLOG) 1 VIAL SQ SCH ×3 (12:02→22:04)
[2023-03-09] MEDS ORDERED: VANCOMYCIN 1 GRAM (PRE-DOCKED) 1,000 MG/250 ML BAG IVPB SCH (14:00)
[2023-03-09] MEDS ORDERED: VANCOMYCIN/WATER FOR INJ (PEG) 1,000 MG/200 ML BAG IVPB SCH (14:00)
[2023-03-09] MEDS ORDERED: traMADol HCL 50 MG TABLET PO ONE (17:00)
[2023-03-09] MEDS: CEFAZOLIN SODIUM 2 GM in DEXTROSE 5%-WATER 100 ML IVPB SCH (17:13)
[2023-03-09] MEDS: ATORVASTATIN CA 40 MG TABLET (FP) PO SCH (22:04)
[2023-03-10] MEDS: CEFAZOLIN SODIUM 2 GM in DEXTROSE 5%-WATER 100 ML IVPB SCH ×3 (01:02→18:05)
[2023-03-10] MEDS: INSULIN SLIDING SCALE (NOVOLOG) 1 VIAL SQ SCH ×4 (06:58→21:43)
[2023-03-10 09:20] LABS: BASO % 1.1 % (0-2.0); HEMATOCRIT 31.2 % (32.4-45.2); HEMOGLOBIN 10.4 GM/dL (10.7-15.3); LYMPH % 34.3 % (8-40); MCH 28.8 pg (25.7-33.7); MCHC 33.3 g/dl (32.0-36.0); MEAN CELL VOLUME 86.3 fl (80-96); MEAN PLT VOLUME 8.6 fl (7.5-11.1); MONO % 11.4 % (3.8-10.2); NEUT % 48.2 % (42.8-82.8); PLATELET COUNT 197 10^3/uL (134-434); RBC 3.61 M/mm3 (3.60-5.2); RDW 13.5 % (11.6-15.6); WHITE BLOOD COUNT 4.7 K/mm3 (4.0-10.0)
[2023-03-10 09:42] LABS: POTASSIUM 4.8 mmol/L (3.5-5.1)
[2023-03-10 09:58] LABS: BLOOD UREA NITROGEN 31.9 mg/dL (7-18); CALCIUM 8.4 mg/dL (8.5-10.1); MAGNESIUM 1.1 mg/dL (1.8-2.4)
[2023-03-10 09:59] LABS: CREATININE 1.3 mg/dL (0.55-1.3)
[2023-03-10 10:00] LABS: BILIRUBIN,TOTAL 0.4 mg/dL (0.2-1); TOT PROT 5.6 g/dl (6.4-8.2)
[2023-03-10 10:03] LABS: ALBUMIN 2.6 g/dl (3.4-5.0)
[2023-03-10] MEDS: LOSARTAN POTASSIUM 25 MG TABLET PO SCH (10:36)
[2023-03-10] MEDS: ENOXAPARIN NA (PORCINE) 40 MG/0.4 ML DISP.SYRIN SQ SCH (10:36)
[2023-03-10] MEDS ORDERED: MAGNESIUM SULF 50% (8.12 MEQ/2 ML-1 GM VIAL) IVPB ONE (11:59)
[2023-03-10] MEDS ORDERED: INSULIN (NOVOLOG) ASPART 100 UNITS/ML 10ML VIAL ONE ×2 (12:31→21:42)
[2023-03-10] MEDS: ACETAMINOPHEN 325 MG TABLET (FP) PO PRN (15:41)
[2023-03-10] MEDS: MAGNESIUM OXIDE 400 MG TABLET (FP) PO SCH (21:44)
[2023-03-10] MEDS: ATORVASTATIN CA 40 MG TABLET (FP) PO SCH (21:44)
[2023-03-11] MEDS ORDERED: ACETAMINOPHEN 1000 MG/100 ML BAG IVPB ONE (02:45)
[2023-03-11] MEDS ORDERED: CEFAZOLIN SODIUM 2 GM VIAL ONE ×3 (03:12→17:33)
[2023-03-11] MEDS: CEFAZOLIN SODIUM 2 GM in DEXTROSE 5%-WATER 100 ML IVPB SCH ×3 (03:18→17:36)
[2023-03-11] MEDS: INSULIN SLIDING SCALE (NOVOLOG) 1 VIAL SQ SCH ×4 (07:07→22:09)
[2023-03-11] MEDS: LOSARTAN POTASSIUM 25 MG TABLET PO SCH (09:05)
[2023-03-11] MEDS: MAGNESIUM OXIDE 400 MG TABLET (FP) PO SCH ×2 (09:05→22:05)
[2023-03-11] MEDS: ENOXAPARIN NA (PORCINE) 40 MG/0.4 ML DISP.SYRIN SQ SCH (09:05)
[2023-03-11] MEDS: ACETAMINOPHEN 325 MG TABLET (FP) PO PRN (09:08)
[2023-03-11] MEDS ORDERED: INSULIN (NOVOLOG) ASPART 100 UNITS/ML 10ML VIAL ONE (21:13)
[2023-03-11] MEDS: ATORVASTATIN CA 40 MG TABLET (FP) PO SCH (22:06)
[2023-03-12] MEDS ORDERED: CEFAZOLIN SODIUM 2 GM VIAL ONE (01:31)
[2023-03-12] MEDS: CEFAZOLIN SODIUM 2 GM in DEXTROSE 5%-WATER 100 ML IVPB SCH ×3 (01:57→13:03)
[2023-03-12] MEDS: INSULIN SLIDING SCALE (NOVOLOG) 1 VIAL SQ SCH ×4 (06:31→22:09)
[2023-03-12] MEDS ORDERED: INSULIN (NOVOLOG) ASPART 100 UNITS/ML 10ML VIAL ONE ×2 (06:37→18:26)
[2023-03-12 08:08] LABS: BASO % 0.9 % (0-2.0); EOS % 4.9 % (0-4.5); HEMATOCRIT 33.8 % (32.4-45.2); HEMOGLOBIN 11.2 GM/dL (10.7-15.3); LYMPH % 34.5 % (8-40); MCH 28.4 pg (25.7-33.7); MEAN CELL VOLUME 86.2 fl (80-96); MEAN PLT VOLUME 8.5 fl (7.5-11.1); MONO % 8.3 % (3.8-10.2); NEUT % 51.4 % (42.8-82.8); PLATELET COUNT 223 10^3/uL (134-434); RBC 3.93 M/mm3 (3.60-5.2); RDW 13.4 % (11.6-15.6); WHITE BLOOD COUNT 5.3 K/mm3 (4.0-10.0)
[2023-03-12 08:24] LABS: POTASSIUM 4.7 mmol/L (3.5-5.1)
[2023-03-12 08:45] LABS: ALBUMIN 2.9 g/dl (3.4-5.0); BILIRUBIN,TOTAL 0.3 mg/dL (0.2-1); BLOOD UREA NITROGEN 35.7 mg/dL (7-18); TOT PROT 6.3 g/dl (6.4-8.2)
[2023-03-12 08:47] LABS: CREATININE 1.4 mg/dL (0.55-1.3); MAGNESIUM 1.4 mg/dL (1.8-2.4)
[2023-03-12] MEDS: ACETAMINOPHEN 325 MG TABLET (FP) PO PRN (10:17)
[2023-03-12] MEDS: MAGNESIUM OXIDE 400 MG TABLET (FP) PO SCH ×3 (10:18→22:18)
[2023-03-12] MEDS: TAMSULOSIN HCL 0.4 MG CAP PO SCH (10:18)
[2023-03-12] MEDS: ENOXAPARIN NA (PORCINE) 40 MG/0.4 ML DISP.SYRIN SQ SCH (10:19)
[2023-03-12] MEDS: LOSARTAN POTASSIUM 25 MG TABLET PO SCH (10:19)
[2023-03-12] MEDS: SODIUM CHLORIDE 1,000 ML IV SCH ×2 (10:20→13:03)
[2023-03-12] MEDS: metoPROLOL SUCCINATE 25 MG TAB.SR.24H (FP) PO SCH (22:09)
[2023-03-12] MEDS: ATORVASTATIN CA 40 MG TABLET (FP) PO SCH (22:10)
[2023-03-13] MEDS: CEFAZOLIN SODIUM 2 GM in DEXTROSE 5%-WATER 100 ML IVPB SCH (01:59)
[2023-03-13] MEDS: INSULIN SLIDING SCALE (NOVOLOG) 1 VIAL SQ SCH ×2 (07:01→13:16)
[2023-03-13] MEDS: ACETAMINOPHEN 325 MG TABLET (FP) PO PRN (07:02)
[2023-03-13] MEDS: MAGNESIUM OXIDE 400 MG TABLET (FP) PO SCH ×2 (10:10→10:13)
[2023-03-13] MEDS: TAMSULOSIN HCL 0.4 MG CAP PO SCH (10:10)
[2023-03-13] MEDS: LOSARTAN POTASSIUM 25 MG TABLET PO SCH (10:10)
[2023-03-13] MEDS: metoPROLOL SUCCINATE 25 MG TAB.SR.24H (FP) PO SCH (10:10)
[2023-03-13] MEDS: ENOXAPARIN NA (PORCINE) 40 MG/0.4 ML DISP.SYRIN SQ SCH (10:11)
[2023-03-13] MEDS: SODIUM CHLORIDE 1,000 ML IV SCH (10:11)
[2023-03-13] MEDS ORDERED: CEPHALEXIN MONOHYDRATE 500 MG CAPSULE (UD) PO SCH (12:00)
[2023-03-13 15:25] VITALS: BP 123/75; PULSE 83; RESP 18; TEMP 98.2
== END 2023-03-13 17:38 | disposition home or self-care (01) ==
LOC: JER 01:31 → INTOOBSV 05:27 → JERBED 05:27 → J8W 09:33
PROVIDERS: ADMIT Internal Medicine; ATTEND Nurse Practitioner Family
PROC: 3E033NZ Introduction of Analgesics, Hypnotics, Sedatives into Peripheral Vein, Percutaneous Approach (ICD-10-PCS; principal; 2023-03-09)
PROC: 3E03329 Introduction of Other Anti-infective into Peripheral Vein, Percutaneous Approach (ICD-10-PCS; 2023-03-09)
PROC: 3E023GC Introduction of Other Therapeutic Substance into Muscle, Percutaneous Approach (ICD-10-PCS; 2023-03-09)
PROC: 3E013VG Introduction of Insulin into Subcutaneous Tissue, Percutaneous Approach (ICD-10-PCS; 2023-03-09)
PROC: 3E0337Z Introduction of Electrolytic and Water Balance Substance into Peripheral Vein, Percutaneous Approach (ICD-10-PCS; 2023-03-09)
PROC: 3E033GC Introduction of Other Therapeutic Substance into Peripheral Vein, Percutaneous Approach (ICD-10-PCS; 2023-03-09)
DX: L03.90 Cellulitis, unspecified (principal); L13.9 Bullous disorder, unspecified; I25.10 Atherosclerotic heart disease of native coronary artery without angina pectoris; I11.0 Hypertensive heart disease with heart failure; E11.9 Type 2 diabetes mellitus without complications; N20.0 Calculus of kidney
CPT/HCPCS: 0241U-QW; 36415; 76775-TC; 80053; 80061; 82962; 83036; 83735; 85025; 87040; 87070; 87081; 87086; 87186; 87205; 93005; 93010; 93970-TC; 96365; 96366; 96372; 96375; 99285-25; G0378

== ENCOUNTER 2023-05-15 02:42 | Observation (INO) | payer OTHER ==
[2023-05-15 05:05] LABS: BASO % 1.8 % (0-2.0); EOS % 4.2 % (0-4.5); HEMATOCRIT 40.9 % (32.4-45.2); HEMOGLOBIN 13.6 GM/dL (10.7-15.3); LYMPH % 38.8 % (8-40); MCH 28.4 pg (25.7-33.7); MCHC 33.2 g/dl (32.0-36.0); MEAN CELL VOLUME 85.6 fl (80-96); MONO % 7.1 % (3.8-10.2); NEUT % 48.1 % (42.8-82.8); PLATELET COUNT 271 10^3/uL (134-434); RBC 4.78 M/mm3 (3.60-5.2); RDW 13.7 % (11.6-15.6)
[2023-05-15 05:20] LABS: POTASSIUM 3.7 mmol/L (3.5-5.1)
[2023-05-15 05:22] LABS: CALCIUM 10.2 mg/dL (8.5-10.1)
[2023-05-15 05:23] LABS: ALBUMIN 4.2 g/dl (3.4-5.0); BLOOD UREA NITROGEN 31.3 mg/dL (7-18)
[2023-05-15 05:26] LABS: CREATININE 1.1 mg/dL (0.55-1.3)
[2023-05-15 05:28] LABS: BILIRUBIN,TOTAL 0.7 mg/dL (0.2-1); TOT PROT 8.8 g/dl (6.4-8.2)
[2023-05-15] MEDS ORDERED: PIPERACILLIN/TAZOB 4.5 GM 4.5 GM/100 ML BAG IVPB ONE (06:05)
[2023-05-15] MEDS: PIPERACILLIN/TAZOB 4.5 GM 4.5 GM in DEXTROSE 5%-WATER 100 ML IVPB ONE (06:22)
[2023-05-15] MEDS: VANCOMYCIN/WATER 1250 MG 1,250 MG/250 ML BAG IVPB ONE (07:31)
[2023-05-15] MEDS ORDERED: LOSARTAN POTASSIUM 25 MG TABLET ONE (10:39)
[2023-05-15] MEDS ORDERED: ENOXAPARIN NA (PORCINE) 40 MG/0.4 ML DISP.SYRIN SQ ONE (10:39)
[2023-05-15] MEDS: INSULIN ASPART SLIDING SCALE (NOVOLOG) 1 VIAL SQ SCH (11:45)
[2023-05-15] MEDS ORDERED: ceFAZolin SODIUM 1 GM VIAL ONE (11:49)
[2023-05-15] MEDS: FUROSEMIDE 40 MG/4 ML INJECTABLE VIAL IVPUSH ONE (12:07)
[2023-05-15] MEDS: LOSARTAN POTASSIUM 25 MG TABLET PO SCH (12:07)
[2023-05-15] MEDS: metoPROLOL SUCCINATE 25 MG TAB.SR.24H (FP) PO SCH (12:07)
[2023-05-15] MEDS: CEFAZOLIN 500 MG in DEXTROSE 5%-WATER - 50 ML IVPB SCH ×2 (12:07→17:06)
[2023-05-15] MEDS ORDERED: KETOROLAC TROMETHAMINE 15 MG/ML VIAL ONE (17:08)
[2023-05-15] MEDS: KETOROLAC TROMETHAMINE 15 MG/ML VIAL IVPUSH ONE (17:11)
[2023-05-15] MEDS: INSULIN (LEVEMIR) 100 UNITS/ML UNITS SQ SCH (21:56)
[2023-05-15] MEDS: ACETAMINOPHEN 325 MG TABLET (FP) PO PRN (22:06)
[2023-05-15 22:39] VITALS: BMI 25.7
[2023-05-16] MEDS ORDERED: INSULIN (NOVOLOG) ASPART 100 UNITS/ML 10ML VIAL ONE ×3 (06:07→20:29)
[2023-05-16 08:14] LABS: BASO % 1.2 % (0-2.0); EOS % 4.4 % (0-4.5); HEMATOCRIT 32.9 % (32.4-45.2); HEMOGLOBIN 10.9 GM/dL (10.7-15.3); MCH 28.4 pg (25.7-33.7); MCHC 33.3 g/dl (32.0-36.0); MEAN CELL VOLUME 85.5 fl (80-96); MONO % 9.8 % (3.8-10.2); NEUT % 59.6 % (42.8-82.8); PLATELET COUNT 224 10^3/uL (134-434); RBC 3.84 M/mm3 (3.60-5.2); RDW 13.5 % (11.6-15.6); WHITE BLOOD COUNT 4.2 K/mm3 (4.0-10.0)
[2023-05-16 08:37] LABS: POTASSIUM 4.7 mmol/L (3.5-5.1)
[2023-05-16 08:42] LABS: PHOSPHOROUS 3.4 mg/dL (2.5-4.9)
[2023-05-16 08:43] LABS: CREATININE 1.6 mg/dL (0.55-1.3)
[2023-05-16 08:51] LABS: CALCIUM 8.2 mg/dL (8.5-10.1)
[2023-05-16] MEDS ORDERED: CEFAZOLIN 1 GM in DEXTROSE 5%-WATER - 50 ML IVPB SCH (10:00)
[2023-05-16] MEDS: LIDOCAINE 4% PATCH TP SCH (10:15)
[2023-05-16] MEDS: CALCIUM (OYSTER SHELL) 500 MG TABLET (FP) PO SCH (10:15)
[2023-05-16] MEDS: MAGNESIUM SULFATE IN WATER 2 GM/50 ML IVPB IVPB ONE ×3 (10:17→16:46)
[2023-05-16] MEDS: INSULIN ASPART SLIDING SCALE (NOVOLOG) 1 VIAL SQ SCH (11:26)
[2023-05-16] MEDS ORDERED: MAGNESIUM OXIDE 400 MG TABLET (FP) PO ONE (12:14)
[2023-05-16] MEDS: MAGNESIUM OXIDE 400 MG TABLET (FP) PO ONE (16:47)
[2023-05-16] MEDS: ENOXAPARIN NA (PORCINE) 40 MG/0.4 ML DISP.SYRIN SQ SCH (16:47)
[2023-05-16] MEDS: CEFAZOLIN 1 GM in DEXTROSE 5%-WATER - 50 ML IVPB SCH (19:11)
[2023-05-16] MEDS: INSULIN (LEVEMIR) 100 UNITS/ML UNITS SQ SCH (21:47)
[2023-05-16] MEDS: LIDOCAINE PATCH REMOVAL TD SCH (21:48)
[2023-05-16] MEDS: FAMOTIDINE 10 MG TABLET PO ONE (22:03)
[2023-05-17] MEDS ORDERED: INSULIN (NOVOLOG) ASPART 100 UNITS/ML 10ML VIAL ONE ×3 (05:25→21:09)
[2023-05-17 12:04] LABS: BASO % 0.8 % (0-2.0); EOS % 4.1 % (0-4.5); HEMOGLOBIN 11.4 GM/dL (10.7-15.3); LYMPH % 26.7 % (8-40); MCH 28.6 pg (25.7-33.7); MCHC 33.6 g/dl (32.0-36.0); MEAN PLT VOLUME 8.5 fl (7.5-11.1); MONO % 7.4 % (3.8-10.2); PLATELET COUNT 229 10^3/uL (134-434); RBC 3.99 M/mm3 (3.60-5.2); RDW 13.5 % (11.6-15.6); WHITE BLOOD COUNT 5.5 K/mm3 (4.0-10.0)
[2023-05-17 12:31] LABS: POTASSIUM 4.8 mmol/L (3.5-5.1)
[2023-05-17 12:36] LABS: CALCIUM 9.3 mg/dL (8.5-10.1)
[2023-05-17 12:37] LABS: BLOOD UREA NITROGEN 28.6 mg/dL (7-18); MAGNESIUM 1.2 mg/dL (1.8-2.4)
[2023-05-17 12:40] LABS: CREATININE 1.1 mg/dL (0.55-1.3)
[2023-05-17 12:41] LABS: BILIRUBIN,TOTAL 0.3 mg/dL (0.2-1)
[2023-05-17 12:44] LABS: ALBUMIN 2.8 g/dl (3.4-5.0)
[2023-05-17] MEDS: MAGNESIUM OXIDE 400 MG TABLET (FP) PO SCH (12:58)
[2023-05-17] MEDS: CEPHALEXIN MONOHYDRATE 500 MG CAPSULE (UD) PO SCH (13:11)
[2023-05-18] MEDS ORDERED: INSULIN (NOVOLOG) ASPART 100 UNITS/ML 10ML VIAL ONE ×2 (12:03→21:00)
[2023-05-19 09:28] VITALS: RESP 18
[2023-05-19 14:11] VITALS: BP 126/71; PULSE 93; TEMP 98.2
== END 2023-05-19 19:14 | disposition home or self-care (01) ==
LOC: JER 02:42 → JERBED 04:47 → J7W 21:29
PROVIDERS: ADMIT Internal Medicine; ATTEND Nurse Practitioner Acute Care
PROC: 3E03329 Introduction of Other Anti-infective into Peripheral Vein, Percutaneous Approach (ICD-10-PCS; principal; 2023-05-15)
PROC: 3E023GC Introduction of Other Therapeutic Substance into Muscle, Percutaneous Approach (ICD-10-PCS; 2023-05-15)
PROC: 3E033GC Introduction of Other Therapeutic Substance into Peripheral Vein, Percutaneous Approach (ICD-10-PCS; 2023-05-15)
PROC: 3E013VG Introduction of Insulin into Subcutaneous Tissue, Percutaneous Approach (ICD-10-PCS; 2023-05-15)
PROC: 3E013VG Introduction of Insulin into Subcutaneous Tissue, Percutaneous Approach (ICD-10-PCS; 2023-05-15)
PROC: 3E0333Z Introduction of Anti-inflammatory into Peripheral Vein, Percutaneous Approach (ICD-10-PCS; 2023-05-15)
DX: T30.4 Corrosion of unspecified body region, unspecified degree (principal); L03.116 Cellulitis of left lower limb; L03.115 Cellulitis of right lower limb; E11.9 Type 2 diabetes mellitus without complications; Y93.89 Activity, other specified; Y92.89 Other specified places as the place of occurrence of the external cause; L53.8 Other specified erythematous conditions; I25.10 Atherosclerotic heart disease of native coronary artery without angina pectoris; I11.0 Hypertensive heart disease with heart failure; G91.9 Hydrocephalus, unspecified; R07.81 Pleurodynia
CPT/HCPCS: 36415; 71045-TC-FY; 80048; 80053; 82962; 83735; 84100; 84703; 85025; 85651; 86140; 87040; 93005; 93010; 93970-TC; 96365; 96366; 96367; 96372; 96375; 97116-GP; 97161-GP; 99285-25; G0378

== ENCOUNTER 2023-09-01 05:25 | Emergency (ER) | payer OTHER ==
[2023-09-01 06:08] VITALS: RESP 16; TEMP 97.6; BMI 35.0
[2023-09-01] MEDS ORDERED: ACETAMINOPHEN INJECTION 100 ML IVPB ONE (06:35)
[2023-09-01] MEDS: ACETAMINOPHEN 1000 MG/100 ML BAG IVPB ONE (06:51)
[2023-09-01] MEDS ORDERED: ACETAMINOPHEN 325 MG TABLET (FP) ONE (06:51)
[2023-09-01] MEDS: ACETAMINOPHEN 500 MG TABLET (FP) PO ONE (06:55)
[2023-09-01 07:22] LABS: POTASSIUM 5.7 mmol/L (3.5-5.1)
[2023-09-01 07:25] LABS: CALCIUM 9.6 mg/dL (8.5-10.1)
[2023-09-01 07:26] LABS: ALBUMIN 3.4 g/dl (3.4-5.0); BLOOD UREA NITROGEN 34.4 mg/dL (7-18)
[2023-09-01 07:28] LABS: CREATININE 1.1 mg/dL (0.55-1.3)
[2023-09-01 07:29] LABS: TOT PROT 7.8 g/dl (6.4-8.2)
[2023-09-01 07:31] LABS: BILIRUBIN,TOTAL 0.3 mg/dL (0.2-1)
[2023-09-01] MEDS ORDERED: KETOROLAC TROMETHAMINE 15 MG/ML VIAL IVPUSH ONE (08:02)
[2023-09-01] MEDS ORDERED: NAPROXEN 500 MG TABLET ONE (08:07)
[2023-09-01] MEDS: NAPROXEN 500 MG TABLET PO ONE (08:10)
[2023-09-01 08:22] VITALS: BP 164/97; PULSE 92
[2023-09-01 09:26] LABS: CALCIUM 9.3 mg/dL (8.5-10.1); POTASSIUM 4.4 mmol/L (3.5-5.1)
[2023-09-01 09:27] LABS: BLOOD UREA NITROGEN 32.8 mg/dL (7-18)
[2023-09-01 09:30] LABS: CREATININE 1.1 mg/dL (0.55-1.3)
== END 2023-09-01 10:59 | disposition home or self-care (01) ==
LOC: JER 05:25
DX: M79.604 Pain in right leg (principal); M79.605 Pain in left leg; R00.0 Tachycardia, unspecified
CPT/HCPCS: 36415; 80048; 80053; 82962; 93005; 93010; 93970-TC; 99285-25

== ENCOUNTER 2023-09-04 19:50 | Observation (INO) | payer OTHER ==
[2023-09-04 20:00] VITALS: BMI 28.3
[2023-09-04] MEDS ORDERED: ACETAMINOPHEN INJECTION 100 ML IVPB ONE (20:47)
[2023-09-04] MEDS: ACETAMINOPHEN 1000 MG/100 ML BAG IVPB ONE (21:16)
[2023-09-04 21:27] LABS: BASO % 0.8 % (0-2.0); EOS % 0.3 % (0-4.5); HEMATOCRIT 37.6 % (32.4-45.2); HEMOGLOBIN 12.6 GM/dL (10.7-15.3); LYMPH % 19.9 % (8-40); MCH 28.4 pg (25.7-33.7); MCHC 33.6 g/dl (32.0-36.0); MEAN CELL VOLUME 84.4 fl (80-96); MEAN PLT VOLUME 7.8 fl (7.5-11.1); MONO % 6.9 % (3.8-10.2); NEUT % 72.1 % (42.8-82.8); PLATELET COUNT 223 10^3/uL (134-434); RBC 4.46 M/mm3 (3.60-5.2); RDW 13.5 % (11.6-15.6); WHITE BLOOD COUNT 7.7 K/mm3 (4.0-10.0)
[2023-09-04 21:34] LABS: INR 1.05 (0.83-1.09); PROTHROMBIN TIME (PATIENT) 11.8 SEC (9.7-13.0)
[2023-09-04 21:49] LABS: POTASSIUM 4.2 mmol/L (3.5-5.1)
[2023-09-04 21:51] LABS: CALCIUM 9.4 mg/dL (8.5-10.1)
[2023-09-04 21:52] LABS: ALBUMIN 3.3 g/dl (3.4-5.0); BLOOD UREA NITROGEN 40.6 mg/dL (7-18)
[2023-09-04 21:55] LABS: CREATININE 1.7 mg/dL (0.55-1.3)
[2023-09-04 21:56] LABS: BILIRUBIN,TOTAL 0.4 mg/dL (0.2-1)
[2023-09-04 22:00] LABS: N-TERMINAL BNP 225.5 pg/ml (5-125)
[2023-09-04] MEDS: SODIUM CHLORIDE 0.9% 500 ML INFUS.BAG IV ONE (22:42)
[2023-09-05] MEDS: morphine CARPU-JECT 2 MG/1 ML DISP.SYRIN IVPUSH ONE (00:46)
[2023-09-05] MEDS: HEPARIN NA (PORCINE) 5,000 UNITS/ML 1ML VIAL SQ SCH (06:12)
[2023-09-05] MEDS: ACETAMINOPHEN 500 MG TABLET (FP) PO ONE (06:12)
[2023-09-05] MEDS: INSULIN ASPART SLIDING SCALE (NOVOLOG) 1 VIAL SQ SCH (06:16)
[2023-09-05 14:51] LABS: HEMATOCRIT 34.1 % (32.4-45.2); HEMOGLOBIN 11.6 GM/dL (10.7-15.3); MCH 28.4 pg (25.7-33.7); MCHC 33.9 g/dl (32.0-36.0); MEAN CELL VOLUME 83.6 fl (80-96); MEAN PLT VOLUME 7.8 fl (7.5-11.1); PLATELET COUNT 226 10^3/uL (134-434); RBC 4.08 M/mm3 (3.60-5.2); RDW 13.9 % (11.6-15.6); WHITE BLOOD COUNT 5.3 K/mm3 (4.0-10.0)
[2023-09-05 15:12] LABS: POTASSIUM 4.1 mmol/L (3.5-5.1)
[2023-09-05 15:17] LABS: ALBUMIN 3.2 g/dl (3.4-5.0); CALCIUM 9.1 mg/dL (8.5-10.1)
[2023-09-05 15:18] LABS: BLOOD UREA NITROGEN 39.7 mg/dL (7-18); MAGNESIUM 1.3 mg/dL (1.8-2.4)
[2023-09-05 15:20] LABS: TOT PROT 6.6 g/dl (6.4-8.2)
[2023-09-05 15:21] LABS: BILIRUBIN,TOTAL 0.4 mg/dL (0.2-1); CREATININE 1.4 mg/dL (0.55-1.3); PHOSPHOROUS 3.7 mg/dL (2.5-4.9)
[2023-09-05] MEDS: MAGNESIUM 2GM/50ML STERILE WATER IVPB IVPB ONE (16:55)
[2023-09-05] MEDS: MAGNESIUM OXIDE 400 MG TABLET (FP) PO ONE (20:00)
[2023-09-05] MEDS: ATORVASTATIN CA 40 MG TABLET (FP) PO SCH (21:22)
[2023-09-05] MEDS: GABAPENTIN 100 MG CAPSULE PO SCH (21:22)
[2023-09-06 08:50] LABS: HEMATOCRIT 34.3 % (32.4-45.2); HEMOGLOBIN 11.6 GM/dL (10.7-15.3); MCH 28.4 pg (25.7-33.7); MCHC 33.8 g/dl (32.0-36.0); MEAN CELL VOLUME 84.1 fl (80-96); PLATELET COUNT 210 10^3/uL (134-434); RBC 4.08 M/mm3 (3.60-5.2); RDW 13.4 % (11.6-15.6); WHITE BLOOD COUNT 4.5 K/mm3 (4.0-10.0)
[2023-09-06 09:10] LABS: POTASSIUM 4.1 mmol/L (3.5-5.1)
[2023-09-06 09:16] LABS: CALCIUM 8.8 mg/dL (8.5-10.1)
[2023-09-06 09:17] LABS: BLOOD UREA NITROGEN 38.4 mg/dL (7-18); MAGNESIUM 1.3 mg/dL (1.8-2.4)
[2023-09-06 09:20] LABS: CREATININE 1.2 mg/dL (0.55-1.3); PHOSPHOROUS 3.1 mg/dL (2.5-4.9)
[2023-09-06 09:22] LABS: BILIRUBIN,TOTAL 0.4 mg/dL (0.2-1); TOT PROT 6.3 g/dl (6.4-8.2)
[2023-09-06] MEDS: metoPROLOL SUCCINATE 25 MG TAB.SR.24H (FP) PO SCH (10:39)
[2023-09-06] MEDS: ACETAMINOPHEN 1000 MG/100 ML BAG IVPB ONE (10:54)
[2023-09-06] MEDS: IBUPROFEN 600 MG TABLET (FP) PO ONE (11:26)
[2023-09-06] MEDS: MAGNESIUM 2GM/50ML STERILE WATER IVPB IVPB ONE (13:49)
[2023-09-06 18:28] VITALS: RESP 20
[2023-09-06] MEDS: IBUPROFEN 400 MG TABLET (FP) PO ONE (19:44)
[2023-09-07] MEDS: metoPROLOL SUCCINATE 25 MG TAB.SR.24H (FP) PO SCH (09:19)
[2023-09-08] MEDS: ACETAMINOPHEN 325 MG TABLET (FP) PO ONE (07:45)
[2023-09-08 15:57] VITALS: BP 105/66; PULSE 78; TEMP 97.8
== END 2023-09-08 20:49 ==
LOC: JER 19:50 → JERBED 09-05 01:58 → J6S 09-05 05:03
PROVIDERS: ADMIT Internal Medicine; ATTEND Internal Medicine
PROC: 3E033GC Introduction of Other Therapeutic Substance into Peripheral Vein, Percutaneous Approach (ICD-10-PCS; principal; 2023-09-05)
PROC: 3E033NZ Introduction of Analgesics, Hypnotics, Sedatives into Peripheral Vein, Percutaneous Approach (ICD-10-PCS; 2023-09-05)
PROC: 3E0337Z Introduction of Electrolytic and Water Balance Substance into Peripheral Vein, Percutaneous Approach (ICD-10-PCS; 2023-09-05)
DX: M79.7 Fibromyalgia (principal); N17.9 Acute kidney failure, unspecified; I25.10 Atherosclerotic heart disease of native coronary artery without angina pectoris; I11.9 Hypertensive heart disease without heart failure; E11.9 Type 2 diabetes mellitus without complications; W18.39XA Other fall on same level, initial encounter; Y93.89 Activity, other specified; Z95.5 Presence of coronary angioplasty implant and graft; Y92.239 Unspecified place in hospital as the place of occurrence of the external cause; Q03.9 Congenital hydrocephalus, unspecified; N20.0 Calculus of kidney; Z91.148 Patient's other noncompliance with medication regimen for other reason
CPT/HCPCS: 36415; 70450-TC; 73070-TC-RT-FY; 73090-TC-RT-FY; 73110-TC-RT-FY; 73130-TC-RT-FY; 75635-TC; 76775-TC; 80053; 80061; 82550; 82553; 82962; 83036; 83735; 83880; 84100; 84484; 84703; 85025; 85027; 85610; 85730; 86140; 93005; 93010; 93306-TC; 96374; 96375; 96376; 97116-GP; 97162-GP; 99285-25; G0378; J0131; J1644